=== PATIENT | male | born 1965 ===

== ENCOUNTER 2024-07-30 07:45 | Inpatient (IN) | payer OTHER ==
[~2024-07-30] VITALS: Ht 132.1 cm; Wt 72.6 kg
[2024-07-30] MEDS ORDERED: NORVASC5 MG PO (09:24)
[2024-07-30] MEDS ORDERED: ZETIA10 MG PO (09:24)
[2024-07-30] MEDS ORDERED: LIPOFEN150 MG (09:25)
[2024-07-30] MEDS ORDERED: VISTARIL50 MG/ML (09:25)
[2024-07-30] MEDS ORDERED: DIOVAN320 MG PO (09:27)
[2024-07-30 09:37] VITALS: BP 160/79
[2024-07-30 09:43] LABS: HEMOGLOBIN 13.3 g/dL (13-16.00); MEAN CELL VOLUME 81.1 fL (80.0-100.00); MEAN CORPUSCULAR HEMOGLOBIN 26.9 pg (27.00-32.0); MEAN CORPUSCULAR HGB CONC 33.2 g/dl (32.0-36.0); PLATELET COUNT 304 K/uL (150-450); RED BLOOD COUNT 4.93 M/uL (4.00-6.00); RED CELL DISTRIBUTION WIDTH 14.5 % (11.5-14.5)
[2024-07-30 10:16] LABS: INR 1.05; PARTIAL THROMBOPLASTIN TIME 27.9 SECONDS (22.0-34.0); PROTHROMBIN TIME 11.4 SECONDS (9.0-11.5)
[2024-07-30 10:17] LABS: COVID-19 AG NEGATIVE (NEGATIVE)
[2024-07-30 10:28] LABS: PH,URINE 6.5 (5.0-8.0); URINE APPEARANCE Clear; URINE BILIRRUBIN Negative (NEGATIVE); URINE BLOOD Negative; URINE COLOR Yellow; URINE GLUCOSE Negative (NEGATIVE); URINE KETONE Negative (NEGATIVE); URINE LEUKOCYTE Negative; URINE NITRATE Negative; URINE PROTEIN Negative (NEGATIVE); URINE UROBILINOGEN 0.2 E.U./dl
[2024-07-30 10:29] LABS: URINE BACTERIA 8.5 uL (0.0-1933); URINE RBC 4.4 uL (0.0-20.8)
[2024-07-30 10:39] LABS: CALCIUM 9.4 mg/dL (8.5-10.1); CREATININE SERUM 0.9 mg/dL (0.70-1.30); GFR 86.67; POTASSIUM 4.51 mEq/L (3.5-5.1)
[2024-07-30 10:46] LABS: URINE WBC 0.7 uL (0.0-23.2)
[2024-07-30 11:21] LABS: RH POSITIVE
[2024-08-07] MEDS ORDERED: ENOXAPARIN SODIUM 40 MG/0.4 ML SYRINGE SUBCUTANEO ONE (07:29)
[2024-08-07] MEDS ORDERED: CEFAZOLIN SODIUM 1,000 MG VIAL ONE (07:29)
[2024-08-07] MEDS ORDERED: OxyCODONE HCL/APAP UD (PERCOCET) PO PRN (07:45)
[2024-08-07] MEDS ORDERED: DOCUSATE SODIUM 100MG CAP PO SCH (09:00)
[2024-08-07] MEDS ORDERED: SIMETHICONE 125 MG CAPSULE PO SCH (09:00)
[2024-08-07] MEDS ORDERED: CEFAZOLIN SODIUM 1,000 MG VIAL IV SCH (09:00)
[2024-08-07] MEDS ORDERED: DEXTROSE 5 %-0.45 % SOD CHLORD 1,000 ML IV SCH (09:00)
[2024-08-07] MEDS ORDERED: FAMOtidine 20 MG TABLET PO SCH (09:00)
[2024-08-07] MEDS ORDERED: ONDANSETRON HCL 2 MG/ML VIAL IV SCH (09:00)
[2024-08-07] MEDS ORDERED: SUGAMMADEX SODIUM 200 MG/2 ML VIAL IV ONE (13:13)
[2024-08-07] MEDS ORDERED: ENALAPRILAT DIHYDRATE 1.25 MG/ML VIAL IV PRN (17:15)
[2024-08-07] MEDS ORDERED: MORPHINE SULFATE 4 MG/ML VIAL IV ONE (19:25)
[2024-08-07 21:10] VITALS: BP 146/64; O2SAT 96
[2024-08-07] MEDS ORDERED: PIPERACILLIN/TAZOBACTAM SODIUM 3.375 GM in DEXTROSE 5 % IN WATER 100 ML IV SCH (23:15)
[2024-08-07] MEDS ORDERED: ACETAMINOPHEN 325 MG TABLET PO PRN (23:15)
[2024-08-08 02:36] VITALS: BP 148/76; O2SAT 98
[2024-08-08 09:26] LABS: CALCIUM 8.3 mg/dL (8.5-10.1); CREATININE SERUM 0.88 mg/dL (0.70-1.30); GFR 88.94; POTASSIUM 3.74 mEq/L (3.5-5.1)
[2024-08-08 09:29] VITALS: BP 135/68; O2SAT 98
[2024-08-08] MEDS ORDERED: OxyCODONE HCL 5 MG TABLET (ROXICODONE) PO PRN (11:30)
[2024-08-08 11:53] LABS: HEMATOCRIT 36.9 % (39.0-48.0); HEMOGLOBIN 12.4 g/dL (13-16.00); MEAN CELL VOLUME 78.8 fL (80.0-100.00); MEAN CORPUSCULAR HEMOGLOBIN 26.4 pg (27.00-32.0); MEAN CORPUSCULAR HGB CONC 33.6 g/dl (32.0-36.0); RED BLOOD COUNT 4.68 M/uL (4.00-6.00); RED CELL DISTRIBUTION WIDTH 14.9 % (11.5-14.5); WHITE BLOOD COUNT 15.64 K/uL (4.5-11.0)
[2024-08-08 11:54] LABS: PLATELET COUNT 316 K/uL (150-450)
[2024-08-08 16:00] VITALS: BP 163/81; O2SAT 95
[2024-08-08 21:30] VITALS: BP 136/78; O2SAT 97
[2024-08-09 01:15] VITALS: BP 144/78; O2SAT 98
[2024-08-09 07:45] LABS: BASO % 0.4 % (0.1-1.2); EOS # 0.03 (0.04-0.54); EOS % 0.2 % (0.7-7.0); HEMATOCRIT 35.6 % (40.1-51.0); HEMOGLOBIN 11.9 g/dL (13.7-17.5); LYMPH # 1.47 (1.18-3.74); LYMPH % 9.4 % (19.3-53.1); MEAN CORPUSCULAR HEMOGLOBIN 26.4 pg (25.6-32.2); MONO # 1.89 (0.24-0.82); NEUT # 12.07 (1.56-6.13); NEUT % 77.5 % (34.0-71.1); PLATELET COUNT 305 K/uL (163-369); RED BLOOD COUNT 4.51 M/uL (4.63-6.08); RED CELL DISTRIBUTION WIDTH 14.5 % (11.6-14.4)
[2024-08-09 08:21] LABS: MONO % 12.1 % (4.7-12.5)
[2024-08-09] MEDS ORDERED: PATIENTS OWN MEDICATION (MEDICAMENTO EN PISO) PO SCH (09:00)
[2024-08-09] MEDS ORDERED: AMLODIPINE BESYLATE 5 MG TABLET PO SCH (09:00)
[2024-08-09 09:41] VITALS: BP 133/76; O2SAT 97
== END 2024-08-09 15:13 | disposition home or self-care (01) | DRG 708 ==
LOC: O/R 08-07 05:40 → SURH 08-07 05:40
PROVIDERS: ADMIT Urology; ATTEND Urology
PROC: 0VT04ZZ Resection of Prostate, Percutaneous Endoscopic Approach (ICD-10-PCS; principal; 2024-08-08)
PROC: 8E0W4CZ Robotic Assisted Procedure of Trunk Region, Percutaneous Endoscopic Approach (ICD-10-PCS; 2024-08-08)
PROC: 0JBC3ZX Excision of Pelvic Region Subcutaneous Tissue and Fascia, Percutaneous Approach, Diagnostic (ICD-10-PCS; 2024-08-08)
DX: C61 Malignant neoplasm of prostate (principal)

== ENCOUNTER 2024-08-14 15:10 | Inpatient (IN) | payer OTHER ==
[~2024-08-14] VITALS: Ht 165.1 cm; Wt 72.6 kg
[~2024-08-14 15:10] MED LIST: DIOVAN320 MG PO; LIPOFEN150 MG; NORVASC5 MG PO; VISTARIL50 MG/ML; ZETIA10 MG PO
[2024-08-14] MEDS ORDERED: ONDANSETRON HCL 2 MG/ML VIAL IV STA (15:25)
--- NOTE | 2024-08-14 15:32 | NUR ---
SE RECIBE PACIENTE ALERTA Y ORIENTADO X3 EL CUAL REFIERE VENIR A CAUSA DE QUE HASTINGS ESTADO PRESENTADO SINTOMAS DE DOLOR ABDOMINAL EN EL RYDER DE HOY Y FUE OPERADO HACE KALEB SEMANA POR DR. MIGUEL.
[2024-08-14] MEDS ORDERED: MORPHINE SULFATE 4 MG/ML VIAL IV ONE (15:45)
--- NOTE | 2024-08-14 15:57 | NUR ---
SE REALIZA LAB Y SE ADMINISTRA TX NEREIDA ORDEN MEDICA BAJO MEDIDAS ASEPTICAS. SE ORIENTA PTE QUIEN REFIERE ENTENDER Y ACEPTAR
[2024-08-14 16:45] LABS: BASO % 0.4 % (0.1-1.2); HEMATOCRIT 38.8 % (40.1-51.0); HEMOGLOBIN 12.9 g/dL (13.7-17.5); LYMPH # 1.01 (1.18-3.74); LYMPH % 5.8 % (19.3-53.1); MEAN CORPUSCULAR HEMOGLOBIN 26.2 pg (25.6-32.2); MONO # 1.17 (0.24-0.82); MONO % 6.7 % (4.7-12.5); NEUT # 15.14 (1.56-6.13); NEUT % 86.7 % (34.0-71.1); PLATELET COUNT 451 K/uL (163-369); RED BLOOD COUNT 4.92 M/uL (4.63-6.08); RED CELL DISTRIBUTION WIDTH 14.3 % (11.6-14.4)
[2024-08-14 17:34] LABS: ALBUMIN 3.6 gm/dL (3.4-5.0); BILIRUBIN TOTAL 0.45 mg/dL (0.3-1.2); CALCIUM 9.8 mg/dL (8.5-10.1); CREATININE SERUM 1.76 mg/dL (0.70-1.30); GFR 39.97; GLOBULINA 4.6 G/DL (2.4-3.5); POTASSIUM 3.55 mEq/L (3.5-5.1); TOTAL PROTEIN 8.2 gm/dL (6.4-8.2)
[2024-08-14] MEDS ORDERED: PIPERACILLIN/TAZOBACTAM SODIUM 2.25 GM in DEXTROSE 5 % IN WATER 50 ML IV SCH (19:21)
[2024-08-14] MEDS ORDERED: ACETAMINOPHEN 325 MG TABLET PO PRN (19:30)
[2024-08-14] MEDS ORDERED: ONDANSETRON HCL 4 MG in 0.9 % SODIUM CHLORIDE 50 ML IV PRN (19:30)
[2024-08-14] MEDS ORDERED: MORPHINE SULFATE 2 MG/ML SYRINGE IV PRN (19:30)
[2024-08-14] MEDS ORDERED: hydrALAZINE HCL 20 MG VIAL IV PRN (19:30)
[2024-08-14] MEDS ORDERED: 0.9 % SODIUM CHLORIDE 1,000 ML IV SCH (19:30)
[2024-08-14 21:44] LABS: INR 1.14; PARTIAL THROMBOPLASTIN TIME 22.9 SECONDS (22.0-34.0); PROTHROMBIN TIME 12.3 SECONDS (9.0-11.5)
[2024-08-14 21:52] VITALS: BP 136/66; O2SAT 98
[2024-08-14 21:59] LABS: PH,URINE 7.5 (5.0-8.0); URINE APPEARANCE Cloudy; URINE BILIRRUBIN Negative (NEGATIVE); URINE BLOOD Moderate; URINE COLOR Yellow; URINE GLUCOSE Negative (NEGATIVE); URINE KETONE Trace (NEGATIVE); URINE LEUKOCYTE Trace; URINE NITRATE Negative; URINE UROBILINOGEN 0.2 E.U./dl
[2024-08-14 22:02] LABS: URINE BACTERIA 80.7 uL (0.0-1933); URINE CAST 1.47 uL (0.0-1.40); URINE RBC 770.9 uL (0.0-20.8); URINE WBC 20.5 uL (0.0-23.2)
[2024-08-14 22:21] LABS: URINE PROTEIN 100 (NEGATIVE)
[2024-08-14 22:22] LABS: URINE CRYSTALS MODERATE /HPF
[2024-08-15 01:12] VITALS: BP 140/79; O2SAT 96
[2024-08-15 02:02] VITALS: BP 154/75
[2024-08-15 08:50] LABS: ALBUMIN 3.4 gm/dL (3.4-5.0); BILIRUBIN TOTAL 0.63 mg/dL (0.3-1.2); CALCIUM 9.1 mg/dL (8.5-10.1); CREATININE SERUM 1.25 mg/dL (0.70-1.30); GFR 59.32; GLOBULINA 3.9 G/DL (2.4-3.5); POTASSIUM 3.51 mEq/L (3.5-5.1); TOTAL PROTEIN 7.3 gm/dL (6.4-8.2)
[2024-08-15 09:15] VITALS: BP 156/76; O2SAT 95
[2024-08-15 16:00] VITALS: BP 142/80; O2SAT 98
[2024-08-16 01:01] VITALS: BP 153/72
[2024-08-16 08:37] LABS: BASO % 0.7 % (0.1-1.2); EOS # 0.16 (0.04-0.54); EOS % 1.2 % (0.7-7.0); HEMATOCRIT 38.3 % (40.1-51.0); HEMOGLOBIN 12.5 g/dL (13.7-17.5); LYMPH # 2.26 (1.18-3.74); MEAN CORPUSCULAR HEMOGLOBIN 26.9 pg (25.6-32.2); MONO # 0.87 (0.24-0.82); MONO % 6.6 % (4.7-12.5); NEUT # 9.85 (1.56-6.13); NEUT % 74.1 % (34.0-71.1); PLATELET COUNT 436 K/uL (163-369); RED BLOOD COUNT 4.64 M/uL (4.63-6.08); RED CELL DISTRIBUTION WIDTH 14.6 % (11.6-14.4)
[2024-08-16 09:03] VITALS: BP 134/77; O2SAT 100
[2024-08-16 16:00] VITALS: BP 152/81; O2SAT 98
[2024-08-17 01:27] VITALS: BP 154/76
[2024-08-17] MEDS ORDERED: ENOXAPARIN SODIUM 40 MG/0.4 ML SYRINGE SUBCUTANEO SCH (09:00)
[2024-08-17 09:15] VITALS: BP 134/72; O2SAT 98
[2024-08-17] MEDS ORDERED: WATER IV SCH (12:00)
[2024-08-17] MEDS ORDERED: DEXTROSE 5% IV SCH (12:00)
[2024-08-17] MEDS ORDERED: [UNRECOGNIZED DRUG - OTHER] IV SCH (12:00)
[2024-08-17] MEDS ORDERED: PIPERACILLIN IV SCH (12:00)
[2024-08-17 17:19] VITALS: BP 144/80; O2SAT 97
[2024-08-17] MEDS ORDERED: MORPHINE SULFATE 2 MG/ML CARTRIDGE IV PRN (18:15)
[2024-08-17] MEDS ORDERED: ACETAMINOPHEN 500 MG GEL..CAP PO PRN ×2 (22:30)
[2024-08-18 00:57] VITALS: BP 150/75; O2SAT 99
[2024-08-18 09:27] VITALS: BP 135/79; O2SAT 97
[2024-08-18 10:01] LABS: CREATININE SERUM 0.64 mg/dL (0.70-1.30); GFR 128.45; HEMOGLOBIN 12.6 g/dL (13.7-17.5); POTASSIUM 4.2 mEq/L (3.5-5.1); RED BLOOD COUNT 4.74 M/uL (4.63-6.08)
[2024-08-18 10:02] LABS: BASO % 0.7 % (0.1-1.2); EOS % 0.9 % (0.7-7.0); HEMATOCRIT 38.5 % (40.1-51.0); LYMPH # 1.91 (1.18-3.74); MEAN CORPUSCULAR HEMOGLOBIN 26.6 pg (25.6-32.2); MONO # 0.94 (0.24-0.82); MONO % 7.9 % (4.7-12.5); NEUT # 8.87 (1.56-6.13); NEUT % 74.1 % (34.0-71.1); PLATELET COUNT 435 K/uL (163-369)
[2024-08-18 10:03] LABS: EOS # 0.11 (0.04-0.54)
[2024-08-18 18:02] VITALS: BP 158/84
[2024-08-19 03:02] VITALS: BP 158/80; O2SAT 97
[2024-08-19 08:00] VITALS: BP 148/85
== END 2024-08-19 10:28 | disposition home or self-care (01) | DRG 690 ==
LOC: ER 15:10 → MEDJ 20:42 → SEC-K 20:42 → MEDJ 23:27
PROVIDERS: General Practice; Urology; ADMIT Student in an Organized Health Care Education/Training Program; ATTEND Student in an Organized Health Care Education/Training Program
PROC: BW21ZZZ Computerized Tomography (CT Scan) of Abdomen and Pelvis (ICD-10-PCS; principal; 2024-08-14)
DX: N39.0 Urinary tract infection, site not specified (principal); N17.9 Acute kidney failure, unspecified; E86.0 Dehydration; I10 Essential (primary) hypertension; C61 Malignant neoplasm of prostate